=== PATIENT | male | born 1995 | race Caucasian/White ===

== ENCOUNTER 2019-06-04 02:40 | Emergency (ER) | payer OTHER ==
[~2019-06-04] VITALS: Ht 170.2 cm; Wt 70.3 kg
[2019-06-04] MEDS ORDERED: TDAP [DIPH/PERTUSSIS/TET] 0.5 ML VIAL IM ONE ×2 (03:00→03:15)
--- NOTE | 2019-06-04 03:00 | NUR ---
C/O FACIAL LACERATION S/P GLF, +KO,+ETOH TO ER BED 1 AWAITING MED ORDERS
--- NOTE | 2019-06-04 03:03 | NUR ---
PT IS WHEELED TO CT SCAN VIA [facility].
--- NOTE | 2019-06-04 03:15 | NUR ---
PT IS BACK FROM THE CT SCAN. AWAITING RESULT.
[2019-06-04] MEDS ORDERED: LIDOCAINE 1%-EPI 1:100,000 20 ML VIAL ONE (04:38)
--- NOTE | 2019-06-04 05:18 | NUR ---
Patient discharged to home in stable condition. Written and verbal after care instructions given. Patient verbalizes understanding of instruction.
[2019-06-04 05:19] VITALS: BP 151/82
== END 2019-06-04 05:19 | disposition home or self-care (01) ==
LOC: ER 02:45
DX: S01.411A Laceration without foreign body of right cheek and temporomandibular area, initial encounter (principal); S09.8XXA Other specified injuries of head, initial encounter; F10.129 Alcohol abuse with intoxication, unspecified; Y90.9 Presence of alcohol in blood, level not specified; W18.09XA Striking against other object with subsequent fall, initial encounter; Y93.89 Activity, other specified; Y92.89 Other specified places as the place of occurrence of the external cause; Y99.8 Other external cause status
CPT/HCPCS: 12013; 70450; 70486; 72125; 90471; 90715; 99284; A6403 ×2; J3490